=== PATIENT | female | born 1955 | race African-American/Black ===

== ENCOUNTER 2017-08-14 11:24 | Emergency (ER) | payer OTHER ==
[~2017-08-14] VITALS: Ht 162.6 cm; Wt 65.8 kg
--- NOTE | ~2017-08-14 | EKG ---
[place] [address] [facility] [place] [address] ELECTROCARDIOGRAM REPORT Name: ANGELIANKITA Room #: [facility]#: [id number] Admission: 08/14/17 Attend Phys: Discharge: 08/14/17 Date of : 57 Report #: [id number] THIS REPORT FOR: //name// [facility] ED Test Date: 2017-08-14 Test Time: 11:48:11 Pat Name: ANKITA SUH Department: Room: Gender: F Sonography Technologist: HEIDI : 1955 Requested By: Isabel Villalpando Order Number: [id number] MD: Johan Carrera Measurements Intervals [place] Rate: 67 P: 76 CA: 186 QRS: 52 QRSD: 82 T: 55 QT: 409 QTc: 432 Interpretive Statements Sinus rhythm Probable left atrial enlargement Probable left ventricular hypertrophy Baseline wander in lead(s) V2 No previous ECG available for comparison Electronically Signed On 08-14-2017 15:58:35 CDT by Johan Carrera [email or web address] <ELECTRONICALLY SIGNED> By: Johan Carrera MD 08/14/17 1558 1148 [id number] Johan Carrera MD /JAZIEL
[2017-08-14] MEDS ORDERED: ZANAFLEX4 MG PO (12:47)
[2017-08-14 12:48] LABS: ABSOLUTE NEUTROPHILS 1.8 thou/uL (1.4-8.2); BASOPHILS 1.1 % (0.0-2.0); EOSINOPHILS 0.8 % (0.0-3.0); HEMATOCRIT 32.5 % (37.0-47.0); HEMOGLOBIN 11.2 gm/dL (12.0-15.0); MCH 31.3 pg (26.0-34.0); MCHC 34.4 g/dL (28.0-37.0); MCV 91.1 fL (80.0-100.0); MONOCYTES 7.9 % (1.0-8.0); PLATELET COUNT 224 thou/uL (150-400); POLYS 39.2 % (36.0-66.0); RBC 3.57 mil/uL (4.20-5.00); RDW 15.9 % (10.5-14.5); WBC 4.5 thou/uL (4.0-11.0)
[2017-08-14] MEDS ORDERED: TRAMADOL 50 MG50 MG PO (12:48)
[2017-08-14] MEDS ORDERED: NAPROSYN500 MG PO (12:48)
[2017-08-14] MEDS ORDERED: BUTALB-ACETAMI1 EACH PO (12:48)
[2017-08-14] MEDS ORDERED: BAYER CHEWABLE81 MG PO (12:49)
[2017-08-14 12:56] LABS: CALCIUM 9.6 mg/dL (8.5-10.1); CREATININE 0.6 mg/dL (0.6-1.0); POTASSIUM 3.5 mmol/L (3.5-5.1)
[2017-08-14] MEDS ORDERED: MOBIC15 MG PO (14:15)
[2017-08-14] MEDS ORDERED: NORCO 5-325 TA1 EACH PO (14:15)
[2017-08-14 14:32] VITALS: BP 124/76
== END 2017-08-14 14:36 | disposition home or self-care (01) ==
LOC: ER 11:24
PROVIDERS: Emergency Medicine
DX: G45.9 Transient cerebral ischemic attack, unspecified (principal); M25.511 Pain in right shoulder

== ENCOUNTER 2020-07-04 15:28 | Emergency (ER) | payer OTHER ==
[~2020-07-04] VITALS: Ht 162.6 cm; Wt 79.4 kg
[~2020-07-04 15:28] MED LIST: BAYER CHEWABLE81 MG PO; BUTALB-ACETAMI1 EACH PO; MOBIC15 MG PO; NAPROSYN500 MG PO; NORCO 5-325 TA1 EACH PO; TRAMADOL 50 MG50 MG PO; ZANAFLEX4 MG PO
[2020-07-04 16:56] LABS: ABSOLUTE NEUTROPHILS 0.8 thou/uL (1.4-8.2); BASOPHILS 1.9 % (0.0-2.0); EOSINOPHILS 2.4 % (0.0-3.0); HEMATOCRIT 35.1 % (37.0-47.0); HEMOGLOBIN 11.6 gm/dL (12.0-15.0); LYMPHOCYTES 59.3 % (24.0-44.0); MCH 35.8 pg (26.0-34.0); MCV 108.7 fL (80.0-100.0); MONOCYTES 11.3 % (1.0-8.0); PLATELET COUNT 245 thou/uL (150-400); POLYS 25.1 % (36.0-66.0); RBC 3.23 mil/uL (4.20-5.00); RDW 18.3 % (10.5-14.5); WBC 3.1 thou/uL (4.0-11.0)
[2020-07-04 17:05] LABS: URINE BILIRUBIN NEGATIVE (Negative); URINE BLOOD TRACE (Negative); URINE CLARITY CLEAR; URINE COLOR YELLOW; URINE GLUCOSE-RANDOM* NEGATIVE (Negative); URINE KETONES NEGATIVE (Negative); URINE NITRITE-REFLEX NEGATIVE (Negative); URINE PROTEIN (DIPSTICK) NEGATIVE (Negative); URINE SPECIFIC GRAVITY <= 1.005 (1.005-1.035); URINE UROBILINOGEN 0.2 E.U./dl (0.2-1.0)
[2020-07-04 17:07] LABS: CALCIUM 9.6 mg/dL (8.5-10.1); CREATININE 0.7 mg/dL (0.6-1.0); POTASSIUM 3.3 mmol/L (3.5-5.1)
[2020-07-04 17:11] LABS: ALBUMIN 3.8 g/dL (3.4-5.0); TOTAL BILIRUBIN 0.2 mg/dL (0.2-1.0)
[2020-07-04 17:13] LABS: URINE LEUKOCYTES-REFLEX 2+ (Negative)
[2020-07-04 17:23] LABS: SQUAMOUS 0-3 Few /LPF (0-3); URINE WBC-REFLEX 6-15 Few /HPF (0-5)
[2020-07-04 17:24] LABS: BACTERIA-REFLEX 1-9 Few /HPF (None Seen); CASTS None Seen /LPF (None Seen); CRYSTALS None Seen /LPF (None Seen); URINE RBC 1-2 Rare /HPF (NONE SEEN)
[2020-07-04] MEDS ORDERED: CEPHALEXIN500 MG PO (17:43)
[2020-07-04 19:11] VITALS: BP 97/48
[2020-07-04 19:19] LABS: ANISOCYTOSIS 1+
[2020-07-04 19:20] LABS: MACROCYTES 1+
== END 2020-07-04 19:13 | disposition home or self-care (01) ==
LOC: ER 15:28
PROVIDERS: Emergency Medicine
DX: R53.1 Weakness (principal); T50.B95A Adverse effect of other viral vaccines, initial encounter; N39.0 Urinary tract infection, site not specified; Z85.07 Personal history of malignant neoplasm of pancreas; Y92.89 Other specified places as the place of occurrence of the external cause